=== PATIENT | male | born 1995 | race Asian ===

== ENCOUNTER → 2020-11-27 08:17 | Outpatient (CLI) | payer OTHER, SELFPAY ==
[2020-11-28 15:33] LABS: SARS-CoV-2 RNA PCR Negative
== END ==
PROVIDERS: Visit Provider Nurse Practitioner Adult Health
DX: R68.89 Other general symptoms and signs (principal); Z20.822 Contact with and (suspected) exposure to COVID-19
CPT/HCPCS: C9803; U0003; U0005

== ENCOUNTER 2020-11-30 02:29 | Day surgery (SDC) | payer OTHER, SELFPAY ==
[2020-11-15 14:45] VITALS: BMI 25.2
[2020-11-30 08:43] VITALS: BP 142/94; PULSE 102; RESP 16; TEMP 36.4; O2SAT 99; BMI 23.8
[2020-11-30] MEDS: LACTATED RINGERS 1,000 ML 150 ML IV CONT (08:54)
--- NOTE | 2020-11-30 09:17 | WPDANESEPPF ---
Anes - Initial Pre Proc Eval Procedure: Operation Date: 11/30/20 09:45 Proposed Procedures p Colonoscopy - Zurdo Jauregui MD Date/Time: 11/30/20 09:17 Surgeon: Zurdo Jauregui MD Pre Op Diagnosis: blood in stool, diarrhea Patient Data Age: 25 Gender: M Height: 1.8 m Weight: 77.5 kg Last Vital Signs Temp 36.4 C 11/30/20 08:43 Pulse 102 H 11/30/20 08:43 Resp 16 11/30/20 08:43 BP 142/94 H 11/30/20 08:43 Pulse Ox 99 11/30/20 08:43 Allergies Allergy/AdvReac Type Severity Reaction Status Date / Time No Known Allergies Allergy Verified 11/30/20 08:34 Home Medications Medication Instructions Recorded Confirmed Type No Home Medications 10/30/20 11/15/20 History Patient hx anesthesia problems: none Family hx anesthesia problems: none PMFSH Past Medical History Medical History BRBPR (bright red blood per rectum) Diarrhea Family History Family History Father Diabetes mellitus Hypertension Heart disease Sibling Hypertension Grandparent Diabetes mellitus Social History Social History Smoking status: Never smoker Alcohol intake: never Substance use: never Substance use type: does not use Living arrangements: alone Additional occupation/education comments: [employer] Gender identity (if verbalized by the patient): Male Spiritual care concerns: No Agree to blood products: Yes Anes - Eval Final PreProcedure Day of Procedure 11/30/20 09:17 Patient weight: normal Heart: regular rate and rhythm Lungs: clear to auscultation Airway: Mallampati scale class II Neurological: alert and oriented Last oral intake: >/= 8 hours ASA classification: I Emergent: no Anesthetic plan: proceed Anesthesia type and monitoring: general GIVS and standard monitoring Informed Consent: The patient's anesthetic plan and its attendant risks and benefits were discussed with the patient/family/POA. Questions were solicited and answers provided to the satisfaction of the patient/family/POA.
--- NOTE | 2020-11-30 09:21 | WPDHPUPDATE1 ---
History and Physical Update Update Date/Time: 11/30/20 09:21 History and Physical has been reviewed, including an updated exam of the patient. There are NO changes in the patient's condition. Risks, benefits, and alternatives have been discussed and questions answered. Patient agrees to proceed with procedure.
[2020-11-30 09:38] VITALS: BP 103/47; PULSE 78; RESP 19; O2SAT 98
[2020-11-30 09:48] VITALS: BP 97/46; PULSE 73; RESP 17; O2SAT 99
[2020-11-30 09:58] VITALS: BP 121/75; PULSE 79; RESP 17; O2SAT 98
== END 2020-11-30 10:22 | disposition home or self-care (01) ==
PROVIDERS: Visit Provider Internal Medicine Gastroenterology
PROC: 0DJD8ZZ Inspection of Lower Intestinal Tract, Via Natural or Artificial Opening Endoscopic (ICD-10-PCS; CPT 45378; principal; 2020-11-30 09:45)
DX: R10.9 Unspecified abdominal pain (principal); K62.5 Hemorrhage of anus and rectum; R19.7 Diarrhea, unspecified; K64.8 Other hemorrhoids
CPT/HCPCS: 45378; J2704; J7120